=== PATIENT | female | born 1990 | race Two or more races ===

== ENCOUNTER 2024-12-07 08:49 | Emergency (ER) | payer MEDICAID ==
[~2024-12-07] VITALS: Ht 157.5 cm; Wt 63.2 kg
[2024-12-07 08:59] VITALS: TEMP 97.9
--- NOTE | 2024-12-07 09:57 | Physician Documentation ---
History of Present Illness ~ Chief Complaint: Complications Stated Complaint: MISCARRIAGE Time Seen by : 09:56 HPI 34-year-old female presenting with concern for miscarriage She tells me that she is although she does not know exactly how far along, has not had an ultrasound yet. Is actually scheduled for an ultrasound today. Last night she started to feel crampy in her lower abdomen. Then during the night she started to have vaginal bleeding, which she states was blood and clots, heavier than a normal period. She now has pain in her lower abdomen and ongoing nausea. No fevers, chills or other infectious type symptoms. She did not take any medications today. She had 1 previous many years ago and had an . Medication Reconciliation Allergies: Coded Allergies: No Known Allergies (Unverified , 12/07/24) Scheduled Levothyroxine Sodium* (Synthroid*), 1 TAB PO DAILY, (Reported) Review of Systems Constitutional: Denies: chills, fever Gastrointestinal: Reports: abdominal pain, nausea; Denies: vomiting Female Genitalia: Reports: abnormal bleeding Physical Exam Physical Exam Vital Signs: Temperature: 97.9, Source: Temporal, Heart Rate: 83, Respiratory Rate: 18, BP: 141/98, Pulse Oximetry: 99, Weight: 63.200 Oxygen Flow Rate: 0 Physical Exam General: This is a pleasant and overall well-appearing young woman, partner at bedside Heart: Regular rate and rhythm, normal-appearing peripheral perfusion Lungs: normal work of breathing, normal oxygen saturation on room air Abdomen: Soft, nondistended. She is tender to palpation across the lower abdomen, worse in the suprapubic region, without rebound or guarding. Palpation of the upper abdomen causes nausea but no pain Neuro: Alert and oriented, no focal deficits Psychiatric: Calm and cooperative with exam Progress Results/Orders Results/Orders Completed Orders - VIVIANE CHAIREZ MD Ondansetron Disint. Tablet (Zofran Odt T (12/07/24 10:05) Acetaminophen 325mg Tablet (Tylenol Tabl (12/07/24 10:05) Vital Signs 12/07/24 12/07/24 12/07/24 12/07/24 08:59 10:00 10:22 12:15 Temp 97.9 Pulse 83 60 68 Resp 18 16 16 B/P (MAP) 141/98 139/90 (106) 136/90 Pulse Ox 99 99 100 O2 Flow Rate 0 0 EKG/XRAY/CT/US/VASC/MRI Ultrasound : Impression The ultrasound report shows a IUP at 7 weeks, with a subchorionic hemorrhage, no dangerous findings to the ovaries, no other significant abnormality Medical Decision Making Differential Dx:Considerations: Include: -complete, - incomplete, -inevitable, -missed, -threatened, Ectopic , Ectopic preg.-ruptured Additional Comment The patient presents with lower abdominal pain and vaginal bleeding in the setting of early . On exam she is mildly tender but does not have peritoneal findings. Ultrasound was obtained that shows a viable , with a subchorionic hemorrhage. This is likely the cause of her pain and bleeding. No other dangerous findings. She may also have some pain related to her underlying endometriosis. She was reassured, given information about her and the subchorionic hemorrhage. She was given home care instructions, and encouraged to follow up with OB as soon as possible for further monitoring and treatment. Return precautions given. Departure Time of Disposition: 12:08 Disposition: 01 HOME / SELF CARE / HOMELESS Impression: Primary Impression: Subchorionic hematoma in first trimester Additional Impression: 7 weeks gestation of Condition: Stable Discharge Instructions: Subchorionic Hematoma Referrals: NO PRIMARY CARE PROVIDER (PCP) Education Educated: Patient Educated regarding: diagnosis, treatment, need for follow up Signature Scribe Signature: na Attestation: VIVIANE Toledo MD Dec 07, 2024 09:57
[2024-12-07] MEDS: ondansetron 4mg rapidly disintigrating tab PO ONE (10:17)
[2024-12-07] MEDS: acetaminophen 325mg tablet PO ONE (10:18)
[2024-12-07] MEDS ORDERED: SYN0.088T PO (10:21)
--- NOTE | 2024-12-07 11:39 | RADIOLOGY REPORT ---
OB ULTRASOUND <14 WEEKS: HISTORY: POSSIBLE MISCARRIAGE. TECHNIQUE: Multiple real-time grayscale sonographic images of the pelvis with duplex Doppler color f low, spectral and M-mode analysis. TRANSDUCERS: Transabdominal COMPARISON: None FINDINGS: Right ovary measures 2.6 x 1.7 x 1.4 cm with normal Doppler color flow. Left ovary is not visualized IUP single fetus at 7 weeks and 0 days average ultrasound age based on mean crown-rump length of 0.9 3 cm heart rate detected at 145 beats per minute. Yolk sac is present. Amniotic fluid subjectively within normal limits Marianne-gestational space: Small subchorionic hematoma measures 0.4 cm. IMPRESSION: IUP single live fetus 7 weeks and 0 days AUA corresponding to an DELROY of 07/26/2025. Small subchorionic hematoma is present measuring 0.4 cm. Close clinical and sonographic follow-up advised.
[2024-12-07 12:15] VITALS: BP 136/90; PULSE 68; RESP 16; O2SAT 100
== END 2024-12-07 12:31 | disposition home or self-care (01) ==
LOC: ER 08:50
DX: O20.8 Other hemorrhage in early pregnancy (principal); Z3A.01 Less than 8 weeks gestation of pregnancy
CPT/HCPCS: 76801; 93976; 99284